=== PATIENT | male | born 1955 | race Caucasian/White ===

== ENCOUNTER 2016-12-28 07:00 | Inpatient (IN) | payer OTHER ==
[~2016-12-28] VITALS: Ht 170.2 cm; Wt 109.0 kg
--- NOTE | 2017-03-17 19:45 | PREOPHP ---
DATE OF ADMISSION: 03/22/2017 REASON FOR ADMISSION: Low back pain . This patient is being admitted electively on 03/22/[address] Nathan Maier. HISTORY OF PRESENT ILLNESS: This 61-year-old man was in his usual state of health until he was injured at work in March 2012. The patient has been having low back pain that radiates down both legs with paresthesias. He has failed medical therapy for his back pain and radiculopathy. He saw Dr. Maier and it was recommended that he undergo surgery to relieve his pain. The patient has decided to undergo surgery. The patient denies any chest pain or shortness of breath. CURRENT MEDICATIONS: Include the following: Vicodin every 6 hours p.r.n. pain. He takes no other chronic medications. PAST MEDICAL HISTORY: Unremarkable. He denies any history of hypertension, heart disease, diabetes mellitus. He does have paresthesias of both lower extremities. ALLERGIES: NO KNOWN DRUG ALLERGIES. PAST SURGICAL HISTORY: Right inguinal herniorrhaphy in 1974. FAMILY HISTORY: Father is , diagnosed with heart disease. Mother is alive. SOCIAL HISTORY: The patient is a smoker. He smokes about 6 to 10 cigarettes a day. He drinks alcohol socially. He was born in [place]. 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 REVIEW OF SYSTEMS: CONSTITUTIONAL: No chills, no weight gain, no loss of appetite, no fever, no weakness, no weight loss, no fatigue. OPHTHALMOLOGIC: Negative. EARS, NOSE, AND THROAT: Negative. CARDIORESPIRATORY: He denies any exertional chest pain, chest pressure, cough, ankle swelling. GASTROINTESTINAL: Negative. NEUROLOGIC: He does have tingling and numbness in both lower extremities. He denies any history of seizures, memory loss, dizziness. HEMATOLOGY AND LYMPHATICS: Negative. UROLOGIC: Negative. PHYSICAL EXAMINATION: GENERAL: At this time reveals a well-developed man in no apparent distress. VITAL SIGNS: Temperature 97.5, pulse of 80, blood pressure 130/90. HEENT: Head normocephalic. Eyes: Extraocular muscles intact. Nose and mouth are normal. NECK: Supple. No neck vein distention. LUNGS: Clear to auscultation. HEART: Regular rhythm. No murmurs, gallops, or rubs. ABDOMEN: Soft, nontender. No masses or megaly. EXTREMITIES: No peripheral edema. Pedal pulses were 2+ bilaterally. IMPRESSION: This patient is cleared for surgery. I will follow the patient postoperatively. Dictated By: ALVARO PEPE MD ND/ANN Conf#: [id number] DID#: [id number] CC: NATHAN MAIER MD;*EndCC* MTDD
[2017-03-22] VITALS (21 sets, daily range): BP systolic 125–190; BP diastolic 69–99; PULSE 69–100; RESP 12–20; Ht 170.2 cm; Wt 109.0 kg
[2017-03-22] MEDS ORDERED: CEFAZOLIN 2 GM/50 ML (PMX) 50 ML IVPB SCH (06:30)
[2017-03-22] MEDS ORDERED: LACTATED RINGER'S 1,000 ML IV* SCH ×2 (06:30)
[2017-03-22] MEDS ORDERED: PROPOFOL 20 ML ONE (06:46)
[2017-03-22] MEDS ORDERED: ROCURONIUM 50 MG INJ ONE ×2 (06:46→07:00)
[2017-03-22] MEDS ORDERED: BUPIVACAINE 0.25% (MPF) 10 ML 10 ML VIAL ONE (06:53)
[2017-03-22] MEDS ORDERED: THROMBIN 5000 UNIT VIAL ONE (06:53)
[2017-03-22] MEDS ORDERED: GELATIN SIZE 100 SPONGE ONE (06:53)
[2017-03-22] MEDS ORDERED: POLYMYXIN/BACITRACIN 1L IRRIG ONE (06:53)
--- NOTE | 2017-03-22 06:53 | HPN ---
Date/Time of Note Date/Time of Note DATE: 03/22/17 TIME: 06:52 Interval H&P Admission Note Pt. seen H&P reviewed: No system changes COLTON MAIER MD Mar 22, 2017 06:53
[2017-03-22] MEDS ORDERED: LIDOCAINE 2% (SDV) 5 ML INJ ONE (07:00)
[2017-03-22] MEDS ORDERED: GLYCOPYRROLATE 0.4 MG INJ ONE (07:00)
[2017-03-22] MEDS ORDERED: NEOSTIGMINE 3 MG/3 ML SYRINGE ONE (07:00)
[2017-03-22] MEDS ORDERED: ONDANSETRON 4 MG INJ ONE (07:00)
[2017-03-22] MEDS ORDERED: DEXAMETHASONE 4 MG/ML 1 ML INJ ONE (07:00)
[2017-03-22] MEDS ORDERED: HYDROmorphONE 2 MG/ML SYG ONE (07:22)
[2017-03-22] MEDS ORDERED: LABETALOL HCL 20MG INJ ONE (07:25)
[2017-03-22] MEDS ORDERED: hydrALAzine 20 MG INJ ONE (07:33)
[2017-03-22] MEDS ORDERED: DEXTROSE 5%-0.45% NACL 1,000 ML IV SCH (08:50)
--- NOTE | 2017-03-22 08:57 | OPR ---
Date/Time of Note Date/Time of Note DATE: 03/22/17 TIME: 08:53 Operative Report Preoperative Diagnosis Lumbar spinal stenosis at L4 Herniated disc L4-5 on the left Postoperative Diagnosis Same Operation Performed Central decompressive laminectomy at L4 Partial central decompressive laminectomy at L5 (superiorly) Microdiscectomy L4-5 on the left Medial facetectomy and foraminotomy L4-5 bilaterally Cosmetic wound closure (4.0 cm) Lateral localizing lumbar radiographs (2) Intraoperative nerve monitoring (60 minutes) Surgeon: COLTON MAIER MD [employer] assistant principal: JOSSUE GILLIAM Anesthesia: general Anesthesiologist: AMBROSIO DELUNA Estimated Blood Loss: 10 - 50 ml's Specimens Spinous process of L4 Herniated disc L4-5 on the left Tubes/Drains 2 medium Hemovac drains employed Complications: None Pt Condition Post Procedure: stable Disposition: PACU Operative\Procedure Findings At surgery, a moderate central and moderately severe lateral recess stenosis at L4 was confirmed. There was a small to moderate central and left paracentral herniation of the L4-5 disc. COLTON MAIER MD Mar 22, 2017 08:57
[2017-03-22] MEDS: FENTAnyl 50 MCG/ML VIAL IV PRN ×2 (08:58→09:28)
[2017-03-22] MEDS ORDERED: ZOLPIDEM 5 MG TAB PO PRN (09:00)
[2017-03-22] MEDS ORDERED: BETHANECHOL 25 MG TAB PO PRN (09:00)
[2017-03-22] MEDS ORDERED: MEPERIDINE 25 MG INJ IV PRN (09:00)
[2017-03-22] MEDS ORDERED: hydrALAzine 20 MG INJ IV PRN (09:00)
[2017-03-22] MEDS ORDERED: FENTAnyl 50 MCG/ML VIAL IV PRN ×2 (09:00)
[2017-03-22] MEDS ORDERED: DIPHENHYDRAMINE 50 MG CAP PO PRN (09:00)
[2017-03-22] MEDS ORDERED: TRIMETHOBENZAMIDE 100 MG/ML VIAL IM PRN (09:00)
[2017-03-22] MEDS ORDERED: PROCHLORPERAZINE 10 MG TAB PO PRN (09:00)
[2017-03-22] MEDS ORDERED: ONDANSETRON 4 MG INJ IV PRN ×2 (09:00)
[2017-03-22] MEDS ORDERED: HYDROCODONE/APAP (5/325) TAB PO PRN (09:00)
[2017-03-22] MEDS ORDERED: DIAZEPAM 5 MG/ML SYG IM PRN (09:00)
[2017-03-22] MEDS ORDERED: HYDROmorphONE 0.2 MG/ML PCA IV SCH (09:00)
[2017-03-22] MEDS ORDERED: NALOXONE (0.4 MG/ML) INJ IV PRN (09:00)
[2017-03-22] MEDS ORDERED: ACETAMINOPHEN 325 MG TAB PO PRN (09:00)
[2017-03-22] MEDS ORDERED: DIPHENHYDRAMINE 50 MG INJ IV PRN (09:00)
[2017-03-22] MEDS ORDERED: EPHEDrine SULFATE 50 MG/5 ML SYG IV PRN (09:00)
[2017-03-22] MEDS ORDERED: DIAZEPAM 5 MG TAB PO PRN (09:00)
[2017-03-22] MEDS ORDERED: HYDROmorphONE (0.2 MG/ML) 10ML SYG IV PRN ×3 (09:00)
[2017-03-22] MEDS ORDERED: AL HYDROX/MG HYDROX/SIMETH 30 ML CUP PO PRN (09:00)
[2017-03-22] MEDS ORDERED: LABETALOL HCL 20MG INJ IV PRN (09:00)
[2017-03-22] MEDS ORDERED: NACL 0.9% 3 ML SYG IV SCH (09:00)
[2017-03-22] MEDS ORDERED: CEPASTAT LOZENGE MT PRN (09:00)
--- NOTE | 2017-03-22 09:14 | OPPN ---
Date/Time of Note Date/Time of Note DATE: 03/22/17 TIME: 09:14 Post-Anesthesia Notes Post-Anesthesia Note Last documented vital signs Vital Signs Date Time Temp Pulse Resp B/P Pulse Ox O2 Delivery O2 Flow Rate FiO2 03/22/17 08:56 98.3 03/22/17 07:09 79 18 163/87 100 Activity: WNL Respiratory function: WNL Cardiovascular function: WNL Mental status: Baseline Pain reasonably controlled: Yes Hydration appropriate: Yes Nausea/Vomiting absent: Yes AMBROSIO DELUNA Mar 22, 2017 09:14
--- NOTE | 2017-03-22 09:44 | OPR ---
DATE OF OPERATION: 03/22/2017 PREOPERATIVE DIAGNOSES: 1. Lumbar spinal stenosis at L4. 2. Herniated disk L4-L5 centrally and to the left. POSTOPERATIVE DIAGNOSES: 1. Lumbar spinal stenosis at L4. 2. Herniated disk L4-L5 centrally and to the left. OPERATIONS AND PROCEDURES PERFORMED: 1. Central decompressive laminectomy at L4. 2. Partial central decompression laminectomy at L5 (superiorly). 3. Microdiskectomy L4-5 on the left. 4. Medial facetectomy and foraminotomy, L4-5 bilaterally. 5. Cosmetic wound closure (4.0 cm). 6. Lateral localized lumbar radiographs (2). 7. Intraoperative nerve monitoring (60 minutes). SURGEON: Nathan Rowe MD SEAT COVERS TRIMMER: Mirian Francois PA-C ANESTHESIA: General endotracheal by Dr. Marion. ESTIMATED BLOOD LOSS: 20 mL, none replaced. DRAINS: Two medium Hemovac drains employed. COMPLICATIONS: None. PERTINENT HISTORY AND PHYSICAL: This is a 61-year-old male who sustained an injury to his back in the course of employment on 04/08/2011. He has had extensive care since that time, has remained symptomatic with persistent low back and bilateral leg pain, left greater than right, which has been unrelieved by conservative management. He has undergone a number of diagnostic studies including an MRI of the lumbar spine, which demonstrated herniated disk at L4- L5 centrally and to the left along with moderate canal stenosis. Treatment options were discussed with the patient, who elected to proceed with surgery. OPERATIVE FINDINGS AT SURGERY: A small to moderate central and left paracentral herniation of the L4-5 disk was confirmed, as was moderate central and moderately severe lateral recess stenosis at that level. The baseline intraoperative nerve monitoring revealed a decrease in the L4 potential on the left of 20%, the L4 potential on the right of 30%, the L5 potential on the left of 40%, the L5 potential on the right of 50%, and the S1 potential bilaterally of 10%. These all returned to normal at the completion of surgery. OPERATIVE PROCEDURE: With the patient in supine position after satisfactory induction of general endotracheal anesthesia by Dr. Marion, the patient was turned to the prone kneeling position on the Claudia frame. All pressure points were carefully padded. The back was prepped and draped in usual sterile fashion. Athrombic pumps were applied to the legs below the knees to prevent venous stasis during and after the procedure. An indwelling Hodges catheter was also placed preoperatively to facilitate bladder drainage during and after the procedure. Two spinal needles were placed next to what was felt to be the L4 and L5 spinous processes, lateral roentgenogram was taken to confirm anatomic localization. A 4.0 cm incision then carried out midline over the spinous process of L4 after the skin was infiltrated with 0.25% Marcaine without epinephrine for postoperative analgesia. Superficial retractors were placed and hemostasis secured with electrocautery. Throughout the procedure, copious amounts of antibacterial irrigating solution was used to periodically irrigate the wound. The fascia was incised in midline with a hot knife, and a bilateral subperiosteal dissection carried out at L4. Deep retractors were placed and deep hemostasis secured with electrocautery. A second intraoperative radiograph was taken with Hair clamps placed in what was felt to be the L4 spinous process. This was confirmed with second x-ray. A central decompressive laminectomy was then carried out using a Kimberly right-angle bone rongeur, Leshantaell rongeur, Kerrison punches and curettes. Ligamentum flavum was incised with sharp dissection. The operating microscope was moved into place. A medial facetectomy and foraminotomy was accomplished at L4-L5 bilaterally using small hand osteotome, mallet, Kerrison punches and curettes. The L5 root on the left was then mobilized medially and protected with Arash nerve root retractor using microdissection technique. This revealed a herniation of the L4 -5 disk. A 15 blade knife used to cut a rectangular window in the annulus and posterior longitudinal ligament, and multiple degenerative disk fragments were harvested with pituitary rongeurs and sent to laboratory for pathologic study. Additional fragments were harvested using Dane curettes. A thorough search of the floor of the canal was made with an arthroscopic probe. No additional fragments were encountered. At this point, there was still some compression of the exiting L5 nerve roots of the dural sac, so the upper part of L5 was removed using Kerrison punches and curettes to thoroughly decompress the dural sac and the exiting L5 nerve roots. The anesthesiologist was asked to perform a Valsalva maneuver at 40 mmHg and no spinal fluid leak was noted. The wound was then closed in layers over 2 medium Hemovac drains, one below the fascia, one above the fascia, using #1 Vicryl Stratafix sutures on the deep para-lumbar musculature and deep fascia of the back, 2-0 Stratafix sutures in subcu tissue, and a 4-0 Vicryl subcuticular cosmetic closing suture on the skin. Dermabond and sterile compressive dressings were applied. Patient having tolerated procedure well, was then turned to supine position onto his bed and extubated by Dr. Marion. He was transported to recovery room in satisfactory condition. At the conclusion of the procedure, sponge, instrument, and needle counts were all correct. NEED FOR WEBSITE ADMIN: During this spinal surgical procedure, my cashier assistant was used to retract and protect the spinal nerves and dural sac. My cashier assistant also employed the suction catheters to evacuate blood from the surgical field to improve visualization of the neural structures. The cashier assistant was medically necessary to facilitate the completion of the surgery in a safe and expeditious manner. [facility] regulations, as well as hospital bylaws, preclude the use of non-licensed health care personnel such as operating room technicians, to perform these functions. Throughout the procedure, neural monitoring was carried out by [employer] including EMG, SSEP and MEP monitoring of the L3, L4 , L5, and S1 nerve roots bilaterally along with spinal cord potentials. These were interpreted by neurologist employed by [employer]. Dictated By: NATHAN HOOPER/ANN Conf#: [id number] DID#: [id number] CC: ALVARO PEPE MD;*EndCC* MTDD
--- NOTE | 2017-03-22 12:00 | RADRPT ---
PROCEDURE: Intraoperative XR. CLINICAL INDICATION: Intraoperative radiograph during L4-5 lumbar decompression. TECHNIQUE: Spot intraoperative lateral lumbar x-ray image was provided. The images were reviewed on a high-resolution PACS workstation. COMPARISON: None available FINDINGS: Spot intraoperative lateral lumbar view were provided during L4-5 lumbar decompression. The images demonstrate metallic probes at the level of L4 and L5. There is mild to moderate spondylosis at the se levels. IMPRESSION: 1. Spot intraoperative lateral lumbar view during L4-5 lumbar decompression were provided. 2. Please see operative report of the same day for further information. RPTAT: DD .Neftaly San MD, MD Date Time Electronically viewed and signed by .Neftaly San MD, on 03/22/2017 11:59 .S/
--- NOTE | 2017-03-22 12:01 | RADRPT ---
PROCEDURE: Intraoperative XR. CLINICAL INDICATION: Intraoperative radiograph during L4-5 lumbar decompression. TECHNIQUE: Spot intraoperative lateral lumbar x-ray image was provided. The images were reviewed on a high-resolution PACS workstation. COMPARISON: 03/22/2017 FINDINGS: Spot intraoperative lateral lumbar view were provided during L4-5 lumbar decompression. The images demonstrate postoperative changes at the L4-5 level. There is stable mild to moderate spondylosis at L4-5 and L5-S1. IMPRESSION: 1. Spot intraoperative lateral lumbar view during L4-5 lumbar decompression were provided. 2. Please see operative report of the same day for further information. RPTAT: DD .Neftaly San MD, MD Date Time Electronically viewed and signed by .Neftaly San MD, on 03/22/2017 12:00 .S/
[2017-03-22] MEDS: CEFAZOLIN 1 GM/50 ML (PMX) 50 ML IVPB SCH ×2 (13:06→18:04)
--- NOTE | 2017-03-22 14:27 | CONS ---
DATE OF ADMISSION: 03/22/2017 DATE OF CONSULTATION: TYPE OF CONSULTATION: Medical consultation. Thank you, Dr. Rowe, for asking me to participate in the medical management of this patient. REASON FOR CONSULTATION: Hypertension. HISTORY OF PRESENT ILLNESS: This 61-year-old man was in his usual state of health until he was inju red at work March of 2012. The patient has been having low back pain that radiates down both legs wi th paresthesias. The patient has failed medical therapy. He saw Dr. Rowe and was diagnosed as having radiculopathy and the patient decided to undergo surgery, which he had this morning. The geeta griffiths underwent a central decompressive laminectomy at L4 with partial central decompression laminect ayanna at L5 and a microdiscectomy at the L4-L5 level on the left. The patient's preoperative diagnosi s was lumbar spinal stenosis at L4, herniated disk at L4-L5 centrally and to the left. The patient is awake and alert. He denies any chest pain or shortness of breath. He seems comfortable. The sobeida butler was on no medication preoperatively. Preoperative medications included Vicodin every 6 hours for pain. He was not on any other chronic medication. PAST MEDICAL HISTORY: Unremarkable. He denies a history of hypertension, heart disease, diabetes m ellitus. He did have paresthesias of both lower extremities. ALLERGIES: NO KNOWN DRUG ALLERGIES. PAST SURGICAL HISTORY: Right inguinal herniorrhaphy in 1974. FAMILY HISTORY: Father is with heart disease. Mother is alive. SOCIAL HISTORY: The patient is a smoker. He smokes about 6 to 10 cigarettes a day. He drinks alco hol socially. 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 PHYSICAL EXAMINATION: GENERAL: At this time reveals a well-developed man in no apparent distress. He is awake and alert and answers questions appropriately. VITAL SIGNS: Blood pressure 164/89, pulse is 76, O2 sat is 96% on 2 liter nasal cannula. HEENT: Head normocephalic. Eyes: Extraocular muscles intact. NOSE AND MOUTH: Normal. NECK: Supple. No neck vein distention. LUNGS: Clear to auscultation. HEART: Regular rhythm. No murmurs, gallops or rubs. ABDOMEN: Soft, nontender, no masses or megaly. EXTREMITIES: No peripheral edema. IMPRESSION: This patient has an elevated blood pressure after surgery today. He does not have a hi story of hypertension and has not been on any hypertensive medication. The patient's blood sugar wa s also elevated at 145. The patient is asymptomatic at this time. He seems comfortable. PLAN: 1. I will start the patient on some p.r.n. medication for elevated blood pressure. 2. I will change his IV to just half normal saline and discontinue the D5W. The patient has labs o rdered for the morning. 3. Postop lumbar spine surgery protocol. 4. I will follow the patient along with you medically. Dictated By: ALVARO PEPE MD, ND/ANN Conf#: [id number] DID#: [id number]
[2017-03-22] MEDS: SOD CHLORIDE 0.45% 1,000 ML IV SCH (14:30)
[2017-03-22] MEDS: RANITIDINE 150 MG TAB PO SCH (21:50)
[2017-03-23] MEDS: CEFAZOLIN 1 GM/50 ML (PMX) 50 ML IVPB SCH ×2 (00:06→05:40)
[2017-03-23] MEDS: SOD CHLORIDE 0.45% 1,000 ML IV SCH ×3 (00:08→20:00)
[2017-03-23 00:40] VITALS: BP 141/79; RESP 20
[2017-03-23 05:04] VITALS: BP 146/82; PULSE 100; RESP 19
[2017-03-23 05:26] LABS: HEMOGLOBIN 12.6 g/dl (14.0-18.0)
[2017-03-23 05:52] LABS: CALCIUM 8.8 mg/dl (8.4-10.2); CREATININE 0.82 mg/dl (0.61-1.24); POTASSIUM 4.9 mmol/L (3.5-5.1)
--- NOTE | 2017-03-23 07:17 | PN ---
Date/Time of Note Date/Time of Note DATE: 03/23/17 TIME: 07:16 Assessment/Plan Lines/Catheters IV Catheter Type (from Nrsg): Peripheral IV Hodges in Place (from Nrsg): Yes Subjective 24 Hr Interval Summary The patient is postop day #1 following a decompressive laminectomy and microdiscectomy at L4-5. He is resting comfortably. He has some abdominal distention. He has a low-grade temp. His Hemovac drain was removed, and his wound is clean and dry and was redressed. A.m. labs are unremarkable. Neurovascular structures are intact distally. He will be seen by physical therapy and mobilized as tolerated. I have ordered a Dulcolax suppository followed by a fleets enema if necessary he has not moved his bowels since Wednesday. Exam/Review of Systems Vital Signs Vitals Vital Signs Date Time Temp Pulse Resp B/P Pulse Ox O2 Delivery O2 Flow Rate FiO2 03/23/17 05:04 99.8 100 19 146/82 98 Nasal Cannula 2.0 Intake and Output 03/22/17 03/22/17 03/23/17 15:00 23:00 07:00 Intake Total 1750 ml 1240 ml 1780 ml Output Total 190 ml 785 ml 825 ml Balance 1560 ml 455 ml 955 ml Results Result Diagram: 03/23/17 0440 03/23/17 0440 COLTON MAIER MD Mar 23, 2017 07:17
[2017-03-23] MEDS ORDERED: BISACODYL 10 MG SUPP PR ONE ×2 (07:30)
[2017-03-23] MEDS ORDERED: NA PHOSPHATE/BIPHOS 133 ML ENEMA PR PRN ×2 (07:30)
[2017-03-23] MEDS ORDERED: BETHANECHOL 25 MG TAB PO PRN (08:00)
[2017-03-23] MEDS: DOCUSATE SODIUM 100 MG CAP PO SCH ×2 (08:43→20:37)
[2017-03-23] MEDS: ASCORBIC ACID 500 MG TAB PO SCH ×2 (08:43→20:37)
[2017-03-23] MEDS: FERROUS SULFATE (EC) 325 MG TAB PO SCH ×3 (08:43→20:37)
[2017-03-23] MEDS: RANITIDINE 150 MG TAB PO SCH ×2 (08:43→20:37)
[2017-03-23] MEDS: HYDROCODONE/APAP (5/325) TAB PO PRN ×3 (08:52→17:39)
[2017-03-23 10:18] LABS: ADD UMIC NO; URINE BILIRUBIN (Dip) NEGATIVE (NEGATIVE); URINE BLOOD (Dip) NEGATIVE (NEGATIVE); URINE COLOR LT. YELLOW (YELLOW); URINE GLUCOSE (Dip) NEGATIVE (NEGATIVE); URINE KETONES (Dip) NEGATIVE (NEGATIVE); URINE LEUKOCYTE ESTERASE (Dip) NEGATIVE (NEGATIVE); URINE NITRITE (Dip) NEGATIVE (NEGATIVE); URINE TOTAL PROTEIN (Dip) NEGATIVE (NEGATIVE); URINE UROBILINOGEN (Dip) 0.2 E.U./dL (0.1-1.0)
--- NOTE | 2017-03-23 12:50 | OPPN ---
Date/Time of Note Date/Time of Note DATE: 03/23/17 TIME: 12:49 Anesthesia Follow up Anesthesia Follow up Last documented vital signs Vital Signs Date Time Temp Pulse Resp B/P Pulse Ox O2 Delivery O2 Flow Rate FiO2 03/23/17 05:04 99.8 100 19 146/82 98 Nasal Cannula 2.0 Respiratory function: WNL Cardiovascular function: WNL Comments vss. No complaints. Satisfactory recoverey from anesthesia AMBROSIO DELUNA Mar 23, 2017 12:50
--- NOTE | 2017-03-23 14:25 | CONS ---
Date/Time of Note Date/Time of Note DATE: 03/23/17 TIME: 14:22 Assessment/Plan Assessment/Plan Chief Complaint/Hosp Course 1. He is 1 day postop a lumbar spine surgery. 2. He does have some constipation and a suppository has been ordered. 3. He will continue with physical therapy. Overall he seems to be doing well. Problems: Consultation Date/Type/Reason Admit Date/Time Mar 22, 2017 at 05:36 Initial Consult Date 24 HR Interval Summary Free Text/Dictation He is 1 day postop a lumbar spine surgery. He is awake and alert. He does complain of feeling some constipation. Exam/Review of Systems Vital Signs Vitals Vital Signs Date Time Temp Pulse Resp B/P Pulse Ox O2 Delivery O2 Flow Rate FiO2 03/23/17 05:04 99.8 100 19 146/82 98 Nasal Cannula 2.0 Intake and Output 03/22/17 03/22/17 03/23/17 15:00 23:00 07:00 Intake Total 1750 ml 1240 ml 1780 ml Output Total 190 ml 785 ml 825 ml Balance 1560 ml 455 ml 955 ml Exam Constitutional: alert, oriented, well developed Respiratory: clear to auscultation, normal air movement Cardiovascular: regular rate and rhythm Gastrointestinal: distended, non-tender Musculoskeletal: nl extremities to inspection Results Result Diagram: 03/23/17 0440 03/23/17 0440 Results 24 hrs Laboratory Tests Test 03/23/17 04:40 03/23/17 08:45 Hemoglobin 12.6 L Hematocrit 39.0 L Sodium Level 140 Potassium Level 4.9 Chloride Level 104 Carbon Dioxide Level 28 Anion Gap 13 Blood Urea Nitrogen 12 Creatinine 0.82 Glucose Level 127 Calcium Level 8.8 Urine Color LT. YELLOW Urine Clarity CLEAR Urine pH 5.5 Urine Specific [place] <=1.005 L Urine Ketones NEGATIVE Urine Nitrite NEGATIVE Urine Bilirubin NEGATIVE Urine Urobilinogen 0.2 E.U./dL Urine Leukocyte Esterase NEGATIVE Urine Hemoglobin NEGATIVE Urine Glucose NEGATIVE Urine Total Protein NEGATIVE Medications Medications Current Medications Acetaminophen/ Hydrocodone Bitart ([place] (5/325)) 1 tab Q4H PRN PO PAIN LEVEL 1 -5; Start 03/22/17 at 09:00 Acetaminophen/ Hydrocodone Bitart ([place] (5/325)) 2 tab Q4H PRN PO PAIN LEVEL 6 -10 Last administered on 03/23/17 13:40; Admin Dose 2 TAB; Start 03/22/17 at 09 :00 Zolpidem Tartrate (Ambien) 5 mg HS PRN PO INSOMNIA; Start 03/22/17 at 09:00 Prochlorperazine (Compazine) 10 mg Q4H PRN PO NAUSEA AND/OR VOMITING; Start 09/26 at 09:00 Trimethobenzamide HCl (Tigan) 200 mg Q4H PRN IM NAUSEA AND/OR VOMITING; Start 03/22/17 at 09:00 Ondansetron HCl (Zofran Inj) 4 mg Q6H PRN IV NAUSEA AND/OR VOMITING Last administered on 03/22/17 18:57; Admin Dose 4 MG; Start 03/22/17 at 09:00 Al Hydrox/Mg Hydrox/Simethicone (Mag-Al Plus) 15 ml Q4H PRN PO CONSTIPATION; Start 03/22/17 at 09:00 Docusate Sodium (Colace) 100 mg BID PO Last administered on 03/23/17 08:43; Admin Dose 100 MG; Start 03/23/17 at 09:00 Acetaminophen (Tylenol Tab) 650 mg Q4H PRN PO TEMP GREATER THAN 101F OR JONES; Start 03/22/17 at 09:00 Ascorbic Acid (Vitamin C) 1,000 mg BID PO Last administered on 03/23/17 08:43 ; Admin Dose 1,000 MG; Start 03/23/17 at 09:00 Ferrous Sulfate (Ferrous Sulfate (Ec)) 325 mg TID PO Last administered on 13:39; Admin Dose 325 MG; Start 03/23/17 at 09:00 Ranitidine HCl (Zantac) 150 mg BID PO Last administered on 03/23/17 08:43; Admin Dose 150 MG; Start 03/22/17 at 21:00 Diazepam (Valium) 5 mg Q4H PRN PO MUSCLE SPASMS Last administered on 03/22/17 14:29; Admin Dose 5 MG; Start 03/22/17 at 09:00 Diazepam (Valium) 5 mg Q4H PRN IM MUSCLE SPASMS; Start 03/22/17 at 09:00 Phenol (Cepastat Lozenge) 1 lozenge PRN PRN MT SORE THROAT; Start 03/22/17 at 09:00 Bethanechol Chloride (Urecholine) 25 mg PRN PRN PO UNABLE TO VOID; Start at 09:00 Diphenhydramine HCl (Benadryl) 50 mg Q6H PRN PO PRURITUS; Start 03/22/17 at 09: 00 Hydromorphone HCl (Dilaudid MEAT COOLER) Q4PCA IV Last administered on 03/22/17 09:22 ; Admin Dose 6 MG; Start 03/22/17 at 09:00 Naloxone HCl 0.2 mg 0.2 mg Q2M PRN IV RR 8 BREATHS/MIN OR LESS; Start 03/22/17 at 09:00 Sodium Chloride (1/2 NS) 1,000 ml @ 100 mls/hr Q10H IV Last administered on 00:08; Admin Dose 100 MLS/HR; Start 03/22/17 at 14:00 Clonidine (Catapres) 0.1 mg Q6H PRN PO ELEVATED BLOOD PRESSURE; Start 03/22/17 at 14:00 Sodium Biphosphate/ Sodium Phosphate (Fleet Enema) 133 ml DAILY PRN [place] CONSTIPATION; Start 03/23/17 at 07:30 ALVARO PEPE MD Mar 23, 2017 14:25
[2017-03-23 20:33] VITALS: BP 121/78; RESP 20
[2017-03-24] MEDS: HYDROCODONE/APAP (5/325) TAB PO PRN ×3 (05:01→13:27)
[2017-03-24] MEDS: SOD CHLORIDE 0.45% 1,000 ML IV SCH (06:00)
--- NOTE | 2017-03-24 06:51 | PN ---
Date/Time of Note Date/Time of Note DATE: 03/24/17 TIME: 06:49 Assessment/Plan Lines/Catheters IV Catheter Type (from Nrs): Saline Lock Hodges in Place (from Nrsg): Yes Subjective 24 Hr Interval Summary The patient is postop day #2 following a decompressive laminectomy at L4. He is resting comfortably in bed. He is afebrile. He is making reasonable progress with physical therapy. Neurovascular structures are intact distally. I anticipate he will be cleared by physical therapy for discharge today. Discharge precautions and instructions have been given to him and his family in [place]. Follow-up arrangements have been made. Exam/Review of Systems Vital Signs Vitals Vital Signs Date Time Temp Pulse Resp B/P Pulse Ox O2 Delivery O2 Flow Rate FiO2 03/23/17 20:33 98.6 91 20 121/78 93 03/23/17 05:04 Nasal Cannula 2.0 Intake and Output 03/23/17 03/23/17 03/24/17 15:00 23:00 07:00 Intake Total 400 ml 850 ml 1230 ml Output Total 2100 ml 1100 ml Balance 400 ml -1250 ml 130 ml Results Result Diagram: 03/23/17 0440 03/23/17 0440 COLTON MAIER MD Mar 24, 2017 06:51
[2017-03-24 08:15] VITALS: BP 117/76; RESP 20
[2017-03-24] MEDS: FERROUS SULFATE (EC) 325 MG TAB PO SCH ×2 (09:10→13:28)
[2017-03-24] MEDS: DOCUSATE SODIUM 100 MG CAP PO SCH (09:10)
[2017-03-24] MEDS: RANITIDINE 150 MG TAB PO SCH (09:11)
[2017-03-24] MEDS: ASCORBIC ACID 500 MG TAB PO SCH (09:11)
--- NOTE | 2017-03-24 13:15 | CONS ---
Date/Time of Note Date/Time of Note DATE: 03/24/17 TIME: 13:11 Assessment/Plan Assessment/Plan Chief Complaint/Hosp Course 1. He is 2 days postop a lumbar spine surgery. 2. He he did have a bowel movement. 3. He will continue with physical therapy. Overall he seems to be doing well. 4. His blood pressure which has been elevated is normal today. 5. He can be discharged home today. Problems: Consultation Date/Type/Reason Admit Date/Time Mar 22, 2017 at 05:36 24 HR Interval Summary Free Text/Dictation He is feeling better today. He is now 2 days postop a lumbar spine surgery. Constitutional: improved, no complaints Exam/Review of Systems Vital Signs Vitals Vital Signs Date Time Temp Pulse Resp B/P Pulse Ox O2 Delivery O2 Flow Rate FiO2 03/24/17 08:15 98.1 76 20 117/76 100 03/23/17 05:04 Nasal Cannula 2.0 Intake and Output 03/23/17 03/23/17 03/24/17 15:00 23:00 07:00 Intake Total 400 ml 850 ml 1230 ml Output Total 2100 ml 1100 ml Balance 400 ml -1250 ml 130 ml Exam Constitutional: alert, oriented, well developed Respiratory: clear to auscultation, normal air movement Cardiovascular: regular rate and rhythm Gastrointestinal: nl liver, spleen, non-tender, soft Musculoskeletal: nl extremities to inspection Results Result Diagram: 03/23/17 0440 03/23/17 0440 Medications Medications Current Medications Acetaminophen/ Hydrocodone Bitart ([place] (5/325)) 1 tab Q4H PRN PO PAIN LEVEL 1 -5; Start 03/22/17 at 09:00 Acetaminophen/ Hydrocodone Bitart ([place] (5/325)) 2 tab Q4H PRN PO PAIN LEVEL 6 -10 Last administered on 03/24/17t 09:15; Admin Dose 2 TAB; Start 03/22/17 at 09 :00 Zolpidem Tartrate (Ambien) 5 mg HS PRN PO INSOMNIA; Start 03/22/17 at 09:00 Prochlorperazine (Compazine) 10 mg Q4H PRN PO NAUSEA AND/OR VOMITING; Start 09/26 at 09:00 Trimethobenzamide HCl (Tigan) 200 mg Q4H PRN IM NAUSEA AND/OR VOMITING; Start 03/22/17 at 09:00 Ondansetron HCl (Zofran Inj) 4 mg Q6H PRN IV NAUSEA AND/OR VOMITING Last administered on 03/22/17 18:57; Admin Dose 4 MG; Start 03/22/17 at 09:00 Al Hydrox/Mg Hydrox/Simethicone (Mag-Al Plus) 15 ml Q4H PRN PO CONSTIPATION Last administered on 03/23/17 20:37; Admin Dose 15 ML; Start 03/22/17 at 09:00 Docusate Sodium (Colace) 100 mg BID PO Last administered on 03/24/17 09:10; Admin Dose 100 MG; Start 03/23/17 at 09:00 Acetaminophen (Tylenol Tab) 650 mg Q4H PRN PO TEMP GREATER THAN 101F OR JONES; Start 03/22/17 at 09:00 Ascorbic Acid (Vitamin C) 1,000 mg BID PO Last administered on 03/24/17 09:11 ; Admin Dose 1,000 MG; Start 03/23/17 at 09:00 Ferrous Sulfate (Ferrous Sulfate (Ec)) 325 mg TID PO Last administered on 09:10; Admin Dose 325 MG; Start 03/23/17 at 09:00 Ranitidine HCl (Zantac) 150 mg BID PO Last administered on 03/24/17 09:11; Admin Dose 150 MG; Start 03/22/17 at 21:00 Diazepam (Valium) 5 mg Q4H PRN PO MUSCLE SPASMS Last administered on 03/22/17 14:29; Admin Dose 5 MG; Start 03/22/17 at 09:00 Diazepam (Valium) 5 mg Q4H PRN IM MUSCLE SPASMS; Start 03/22/17 at 09:00 Phenol (Cepastat Lozenge) 1 lozenge PRN PRN MT SORE THROAT; Start 03/22/17 at 09:00 Bethanechol Chloride (Urecholine) 25 mg PRN PRN PO UNABLE TO VOID; Start at 09:00 Diphenhydramine HCl (Benadryl) 50 mg Q6H PRN PO PRURITUS; Start 03/22/17 at 09: 00 Hydromorphone HCl (Dilaudid [employer]) Q4PCA IV Last administered on 03/22/17 09:22 ; Admin Dose 6 MG; Start 03/22/17 at 09:00 Naloxone HCl 0.2 mg 0.2 mg Q2M PRN IV RR 8 BREATHS/MIN OR LESS; Start 03/22/17 at 09:00 Sodium Chloride (1/2 NS) 1,000 ml @ 100 mls/hr Q10H IV Last administered on 00:08; Admin Dose 100 MLS/HR; Start 03/22/17 at 14:00 Clonidine (Catapres) 0.1 mg Q6H PRN PO ELEVATED BLOOD PRESSURE; Start 03/22/17 at 14:00 Sodium Biphosphate/ Sodium Phosphate (Fleet Enema) 133 ml DAILY PRN [place] CONSTIPATION Last administered on 03/24/17 05:00; Admin Dose 133 ML; Start at 07:30 ALVARO PEPE MD Mar 24, 2017 13:15
== END 2017-03-24 14:30 | disposition home or self-care (01) | DRG 520 ==
LOC: EDSTATUS 07:00 → REC 03-22 05:36 → MS1 03-22 10:01
PROVIDERS: ADMIT Orthopaedic Surgery; ATTEND Orthopaedic Surgery
PROC: 0SB20ZZ Excision of Lumbar Vertebral Disc, Open Approach (ICD-10-PCS; 2017-03-22)
PROC: 01NB0ZZ Release Lumbar Nerve, Open Approach (ICD-10-PCS; principal; 2017-03-22 07:00)
DX: M51.16 Intervertebral disc disorders with radiculopathy, lumbar region (principal); E11.65 Type 2 diabetes mellitus with hyperglycemia; I10 Essential (primary) hypertension; M48.06 Spinal stenosis, lumbar region; F17.210 Nicotine dependence, cigarettes, uncomplicated; R03.0 Elevated blood-pressure reading, without diagnosis of hypertension; K59.00 Constipation, unspecified
CPT/HCPCS: 72020; 80048; 81003; 82962; 85014; 85018; 86850; 86900; 86901; 86920; 87086; 97116; 97162; 97530; J0360; J0690; J1100; J1170; J2175; J2405; J2710; J3010; J7042; J7120